=== PATIENT | female | born 1965 | race Caucasian/White ===

== ENCOUNTER → 2018-07-07 14:46 | Outpatient (CLI) | payer BC, SELFPAY ==
--- NOTE | 2018-07-07 14:53 | XR_ITS ---
XR foot wt bearing RT 3V HISTORY: Follow-up fracture ITS.REASON: Fracture/Dislocation F/U ORDERING PHYSICIAN: Martita James DPM PATIENT AGE: 53 years COMPARISON: 06/09/2018 FINDINGS: No change in the nondisplaced oblique fracture at the base of the proximal phalanx of the first digit with extension into the MTP joint. Fracture line is still visible.. IMPRESSION: No change first proximal phalanx fracture
== END ==
PROVIDERS: PCP Physician Assistant; Visit Provider Podiatrist
DX: S92.414D Nondisplaced fracture of proximal phalanx of right great toe, subsequent encounter for fracture with routine healing (principal); T14.8XXA Other injury of unspecified body region, initial encounter
CPT/HCPCS: 73630

== ENCOUNTER → 2018-08-11 07:54 | Outpatient (CLI) | payer BC, SELFPAY ==
--- NOTE | 2018-08-11 07:57 | XR_ITS ---
XR foot wt bearing RT 3V HISTORY: ITS.REASON: fracture f/u ORDERING PHYSICIAN: Martita James DPM PATIENT AGE: 53 years COMPARISON: None FINDINGS: No fracture or dislocation. No lytic or blastic change. There is normal mineralization.. The joint spaces are well-preserved. No significant degenerative/arthritic changes. No erosive changes evident. There is a 3 mm plantar calcaneal spur. IMPRESSION: No acute process. Plantar calcaneal small spur.
== END ==
PROVIDERS: PCP Physician Assistant; Visit Provider Podiatrist
DX: S92.411A Displaced fracture of proximal phalanx of right great toe, initial encounter for closed fracture (principal); T14.8XXA Other injury of unspecified body region, initial encounter
CPT/HCPCS: 73630

== ENCOUNTER → 2021-08-15 13:32 | Outpatient (CLI) | payer BC, SELFPAY ==
--- NOTE | 2021-08-15 13:39 | XR_ITS ---
FINAL REPORT CLINICAL HISTORY: pain FINDINGS: LEFT ANKLE Three views were obtained. There is no acute fracture or dislocation. The joint spaces appear normal. No soft tissue abnormality is identified. There is a plantar calcaneal spur. IMPRESSION: No acute process. Reviewed, Interpreted and Dictated by Rivera Costa III, MD Transcribed by Celi Bateman Authenticated and [facility]
--- NOTE | 2021-08-15 13:39 | XR_ITS ---
FINAL REPORT CLINICAL HISTORY: pain FINDINGS: LEFT FOOT Three views were obtained. There is no acute fracture or dislocation. The joint spaces appear normal. No soft tissue abnormality is identified. There is a plantar calcaneal spur. IMPRESSION: No acute process. Reviewed, Interpreted and Dictated by Rivera Costa III, MD Transcribed by Celi Bateman Authenticated and [facility]
== END ==
PROVIDERS: PCP Emergency Medicine; Visit Provider Podiatrist
DX: M79.672 Pain in left foot (principal); M25.572 Pain in left ankle and joints of left foot
CPT/HCPCS: 73610; 73630